=== PATIENT | female | born 1990 | race Caucasian/White ===

== ENCOUNTER 2022-01-06 01:24 | Day surgery (SDC) | payer BC, SELFPAY ==
[2021-12-29 10:24] VITALS: BMI 21.7
--- NOTE | 2021-12-29 10:35 | PC.NURSE ---
Report to the Outpatient Waiting Room, entrance under the green pavilion located off [facility], at time 1245 on date 01/06/22. OR Time: 1445. - You and your visitor will be asked to self-screen and do not enter if you have any COVID symptoms. - Only one visitor and NO children visitors are allowed at this time. - The patient visitor is requested to leave or wait in car when not with patient due to restrictions. - A mask is required within the hospital. Patients may have clear liquids (water, carbonated beverages, clear teas, apple juice) until 3 hours prior to surgery with a maximum of 20 ounces. - No food from midnight until time of surgery Take the following medications with a SIP of water the morning of surgery: N/A Medications to discontinue per physician: VITAMINS Date to take last dose: 01/03/22 Please no make-up, nail welsh, hairspray, perfume, deodorant, or body powder the day of surgery. No jewelry (including any body piercings) or valuables the day of surgery, leave them at home. Please take a shower or bath the night before, or the morning of, surgery with an antibacterial soap. Wear comfortable, loose fitting clothing. - Jewelry must be removed prior to entering the operating room. Rings and piercings that are not removed may be cut off. - The hospital will not accept responsibility for valuables. - Please leave all valuables, including medications, at home the day of surgery. If you are going home after surgery, a licensed tow bar driver must drive you home. - NO public transportation without another adult. - We recommend that an adult stay with you for 24 hours following discharge. - We also recommend that you do not drive, make important decision, drink alcoholic beverages, or take any drugs that were not prescribed by your health care provider for at least 24 hours after your discharge time. Follow any additional instructions given to you from your surgeon. If you or anyone in your household have experienced Covid symptoms in the past week, please notify your surgeon or the nurse liaison at the phone number below for possible testing. Telephone instructions given to PT - BREE BAE and asked if any additional questions and then verbalized understanding. Patient advised to call surgeon office or pre surgery nurse liaison [phone] if any additional questions.
[2022-01-06] VITALS (10 sets, daily range): BP systolic 113–130; BP diastolic 69–86; PULSE 45–58; RESP 12–16; TEMP 36.3–37.2; O2SAT 100
--- NOTE | 2022-01-06 12:54 | PM.IMHP ---
H&P: HPI History of Present Illness Date/Time: 01/06/22 12:54 Chief Complaint: I'm here to have my tubes taken out Narrative: Patient here with undesired fertility requesting permanent sterilization. Review of Systems Review of Systems: All systems reviewed & are unremarkable except as noted in HPI and below PMFSH Social History Social History Smoking status: Never smoker Alcohol intake: current Drinks per week: 4 Substance use: never Substance use type: does not use Living arrangements: with family Spiritual care concerns: No Meds Home Medications and Allergies Home Medications Medication Instructions Recorded Confirmed Type vitamins no.144-folic 1 tablet PO HS 12/29/21 12/29/21 History acid 400 mcg chewable tablet () sertraline 50 mg tablet 50 mg PO HS 12/29/21 12/29/21 History Allergies Allergy/AdvReac Type Severity Reaction Status Date / Time No Known Allergies Allergy Verified 12/29/21 10:23 Exam Const: General: comfortable and no acute distress Eyes: General: appearance normal, both eyes and all related structures Resp: Effort & Inspection: normal respiratory effort Auscultation: clear to auscultation bilaterally Cardio: Rate: regular rate Rhythm: regular rhythm GI: GI Palp: Yes Soft to palpation Auscultation: normal bowel sounds Skin: General skin exam: normal color and no rashes or lesions noted Neuro: General: gait normal Speech: normal speech Psych: Mental Status: mental status grossly normal Assessment and Plan Assessment and plan (1) Sterilization: Code(s): Z30.2 - Encounter for sterilization Status: Acute Plan Diagnostic laparoscopy, bilateral salpingectomy
--- NOTE | 2022-01-06 12:55 | WPDHPUPDATE1 ---
History and Physical Update Update Date/Time: 01/06/22 12:55 History and Physical has been reviewed, including an updated exam of the patient. There are NO changes in the patient's condition. Risks, benefits, and alternatives have been discussed and questions answered. Patient agrees to proceed with procedure.
[2022-01-06] MEDS: ACETAMINOPHEN 500 MG TABLET 1000 MG PO (13:01)
[2022-01-06] MEDS: GABAPENTIN 300 MG CAPSULE PO (13:01)
--- NOTE | 2022-01-06 13:02 | WPDANESEPPF ---
Anes - Initial Pre Proc Eval Procedure: Operation Date: 01/06/22 14:45 Proposed Procedures p Diagnostic Laparoscopy, Bilateral Salpingectomy - Lisa Mcgraw DO Date/Time: 01/06/22 13:02 Surgeon: Lisa Mcgraw DO Pre Op Diagnosis: Desires Sterility Patient Data Age: 31 Gender: F Height: 1.6 m Weight: 55.79 kg Allergies Allergy/AdvReac Type Severity Reaction Status Date / Time No Known Allergies Allergy Verified 01/06/22 12:59 Home Medications Medication Instructions Recorded Confirmed Type vitamins no.144-folic 1 tablet PO HS 12/29/21 01/06/22 History acid 400 mcg chewable tablet () sertraline 50 mg tablet 50 mg PO HS 12/29/21 01/06/22 History Patient hx anesthesia problems: post op nausea/vomiting Family hx anesthesia problems: none Results Review: All pre-operative results and documents have been reviewed as part of the pre-operative evaluation. [facility] Social History Social History Smoking status: Never smoker Alcohol intake: current Drinks per week: 4 Substance use: never Substance use type: does not use Living arrangements: with family Spiritual care concerns: No Anes - Eval Final PreProcedure Day of Procedure 01/06/22 13:02 Patient weight: normal Heart: regular rate and rhythm Lungs: clear to auscultation Airway: Mallampati scale class II Neurological: alert and oriented Last oral intake: >/= 8 hours ASA classification: II Emergent: no Anesthetic plan: proceed Anesthesia type and monitoring: general ETT and standard monitoring Results Review: All pre-operative results and documents have been reviewed as part of the pre-operative evaluation. Informed Consent: The patient's anesthetic plan and its attendant risks and benefits were discussed with the patient/family/POA. Questions were solicited and answers provided to the satisfaction of the patient/family/POA.
[2022-01-06] MEDS: LACTATED RINGERS 1,000 ML 30 ML IV CONT ×2 (13:13→14:45)
[2022-01-06] MEDS: SCOPOLAMINE 1.5 MG PATCH TRANSDERM (13:16)
[2022-01-06] MEDS: BUPIVACAINE HCL 0.25% PF 30 ML VIAL 10 ML INFILTRATE (13:48)
--- NOTE | 2022-01-06 14:15 | P.OP_ITS ---
Procedure Note - Detailed Date of Procedure 01/06/22 Pre-op Diagnosis Desires Sterility Post-op Diagnosis Same Procedure Performed Diagnostic laparoscopy, bilateral salpingectomy Surgeon Lisa Mcgraw DO Hematology Supervisor Cynthia Anesthesia General Indications Undesired fertility Findings Normal appearing vulva and vaginal canal. Large multiparous cervix. Internally, the liver, gallbladder, bowel and pelvic organs all appeared normal and healthy. Description of Procedure The patient was taken to the operating room where she was placed under general anesthesia. No preoperative antibiotics were indicated. She was prepped and draped in the normal sterile fashion in a dorsal lithotomy position. A time-out was performed. A Hernandez catheter was placed. Speculum was placed and the cervix visualized. The anterior lip was grasped with a single-tooth tenaculum and the cervix was sequentially dilated up to accommodate a uterine manipulator. The uterus was sounded to 7 cm. A Kroner uterine manipulator was placed and a speculum and tenaculum were removed. Gloves were changed and attention was then turned to the abdomen. The skin below the umbilicus was grasped with 2 penetrating towel clamps. Local anesthetic was injected and a small incision was made. A Veress needle was introduced and the saline water drop test was performed to confirm intraperitoneal placement. CO2 insufflation was started and the abdomen was brought to a filling pressure of 15 mmHg. The Veress needle was then replaced with a 5 mm Optiview trocar which was placed under direct visualization. Survey of the abdomen revealed no evidence of bowel or vascular injury. The patient was then placed in steep Trendelenburg position. Additional trocar sites in the right and left lower quadrants were identified and injected. Incisions were made and 5 mm trocars were introduced under direct visualization. Survey of the pelvis revealed the above-mentioned findings. There was a small amount of menstrual blood in the pelvis which was irrigated out. The right tube was elevated and was cauterized and transected off using LigaSure. It was passed off through the account management assistant port the procedure was repeated in an identical fashion on the left-hand side. The surgical pedicles were reinspected and found to be hemostatic. The instruments and the trocars were removed and the CO2 insufflation was allowed to escape. The abdominal incisions were closed with 4- 0 Monocryl in a subcuticular fashion. The Hernandez catheter and uterine manipulator were removed. Patient was taken to the recovery room in stable condition. All instrument and sponge counts were correct at the conclusion of the procedure. Estimated Blood Loss 5 IV Fluids 800 Urine Output 150 Pathology Yes Complications No immediate complications Condition Stable Disposition PACU
[2022-01-06] MEDS: fentaNYL CITRATE INJ (*CRX) 100 MCG/2 ML VIAL 25 MCG IV PUSH (14:57)
[2022-01-06] MEDS: ONDANSETRON INJ 4 MG/2 ML VIAL IV PUSH (15:34)
== END 2022-01-06 16:22 | disposition home or self-care (01) ==
PROVIDERS: PCP Family Medicine; Visit Provider Obstetrics & Gynecology Gynecologic Oncology
PROC: (CPT 49320; principal; 2022-01-06 14:45)
DX: Z30.2 Encounter for sterilization (principal)
CPT/HCPCS: 58661; 88302; A9270; J1100; J2250; J2405; J2704; J2710; J3010; J7120